=== PATIENT | female | born 1970 | race Caucasian/White ===

== ENCOUNTER 2017-05-28 20:44 | Inpatient (IN) | payer OTHER, BC ==
[2017-05-28 20:45] VITALS: BP 124/69; PULSE 100; PULSE 101; RESP 18; TEMP 98; O2SAT 95; O2SAT 98
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
[2017-05-28] MEDS ORDERED: LEVO150T7 PO (21:41)
[2017-05-28] MEDS ORDERED: EQUE100C PO (21:41)
[2017-05-28] MEDS ORDERED: RISP1 PO (21:41)
[2017-05-28] MEDS ORDERED: BP med PO (21:41)
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
[2017-05-28 22:34] LABS: AUTOMATED NEUTROPHIL # 4.3 TH/MM3 (1.8-7.7); BASOPHIL # 0.1 TH/MM3 (0-0.2); BASOPHIL % 1.2 % (0.0-2.0); EOSINOPHIL # 0.4 TH/MM3 (0-0.4); EOSINOPHIL % 5.1 % (0.0-4.0); HEMATOCRIT 39.3 % (35.0-46.0); HEMOGLOBIN 13.4 GM/DL (11.6-15.3); LYMPH % 30.5 % (9.0-44.0); LYMPHOCYTE # 2.3 TH/MM3 (1.0-4.8); MEAN CELL VOLUME 96.5 FL (80.0-100.0); MEAN CORPUSCULAR HEMOGLOBIN 32.8 PG (27.0-34.0); MEAN PLATELET VOLUME 7.8 FL (7.0-11.0); MONO % 6.2 % (0.0-8.0); MONOCYTE # 0.5 TH/MM3 (0-0.9); PLATELET COUNT 224 TH/MM3 (150-450); RED BLOOD COUNT 4.08 MIL/MM3 (4.00-5.30); RED CELL DISTRIBUTION WIDTH 12.5 % (11.6-17.2); WHITE BLOOD COUNT 7.5 TH/MM3 (4.0-11.0)
[2017-05-28 22:46] LABS: PROTHROMBIN TIME - PATIENT 9.9 SEC (9.8-11.6)
[2017-05-28 22:48] LABS: BICARBONATE 28.1 MEQ/L (21.0-32.0); BLOOD UREA NITROGEN 26 MG/DL (7-18); CALCIUM 8.4 MG/DL (8.5-10.1); CHLORIDE 105 MEQ/L (98-107); CREATININE 0.96 MG/DL (0.50-1.00); GLOMERULAR FILTRATION RATE 62 ML/MIN (>89); GLUCOSE,RANDOM 81 MG/DL (74-106); SODIUM (NA) 137 MEQ/L (136-145)
[2017-05-28] MEDS ORDERED: IOHEXOL 350 MG/ML 10 ML VIAL (for RAD DIAG) IVCONTRAST ONE (23:44)
[2017-05-28] MEDS ORDERED: CLON.5 PO (23:47)
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
[2017-05-29] VITALS: BP 101/62; PULSE 107; RESP 16; TEMP 96.1; O2SAT 92
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
[2017-05-29 00:14] VITALS: BP 112/68; PULSE 103; RESP 16; O2SAT 97
[2017-05-29] MEDS ORDERED: CHLORHEXIDINE GLUCONATE 2 % 1 PACK (2 CLOTHS) TOP PRN (00:45)
[2017-05-29] MEDS ORDERED: HYDROmorphone HCL PF 1 MG/ML VIAL IVP PRN (00:45)
[2017-05-29] MEDS ORDERED: oxyCODONE/ACETAMINOPHEN 5 MG/325 MG TAB PO ONE (00:45)
[2017-05-29] MEDS ORDERED: MISCELLANEOUS NURSING INFORMATION XX SCH (00:45)
[2017-05-29] MEDS: LACTATED RINGER'S 1000 ML INJ 1,000 ML IV SCH ×2 (00:59→09:06)
[2017-05-29 04:00] VITALS: BP 110/72; PULSE 108; RESP 16; TEMP 96.1; O2SAT 95
[2017-05-29] MEDS ORDERED: CHLORHEXIDINE GLUCONATE 2 % 1 PACK (2 CLOTHS) TOP SCH (04:00)
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
[2017-05-29 08:00] VITALS: BP 116/68; PULSE 90; RESP 18; TEMP 98.1; O2SAT 92
[2017-05-29] MEDS ORDERED: DOCUSATE SODIUM 100 MG CAP PO SCH (09:00)
[2017-05-29] MEDS ORDERED: DOCU1CAP39 PO (11:17)
[2017-05-29] MEDS ORDERED: CARBAMAZEPINE 100 MG PO SCH (11:30)
[2017-05-29] MEDS ORDERED: LEVOTHYROXINE SODIUM 150 MCG TAB PO SCH (11:30)
[2017-05-29] MEDS ORDERED: clonazePAM 0.5 MG TAB PO SCH (11:30)
[2017-05-29] MEDS ORDERED: PILL SPLITTER OTHER PRN (11:45)
[2017-05-29] MEDS ORDERED: carBAMazepine 200 MG TAB PO SCH (11:45)
[2017-05-29 12:00] VITALS: BP 114/69; PULSE 101; RESP 20; TEMP 98.8; O2SAT 94
[2017-05-29] MEDS ORDERED: ROBA500T PO (12:05)
[2017-05-29] MEDS ORDERED: PERC5TAB12 PO (12:05)
[2017-05-29] MEDS ORDERED: ACETAMINOPHEN 325 MG TAB PO PRN (12:15)
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
[2017-05-29] MEDS ORDERED: risperiDONE 1 MG TAB PO SCH (21:00)
== END 2017-05-29 16:01 | disposition home or self-care (01) | DRG 605 ==
LOC: NEPC 20:44 → NEDA 05-29 00:45 → N07A 05-29 01:50
PROVIDERS: ADMIT Surgery Trauma Surgery; ATTEND Surgery Trauma Surgery
DX: S20.219A Contusion of unspecified front wall of thorax, initial encounter (principal); S27.329A Contusion of lung, unspecified, initial encounter; I10 Essential (primary) hypertension; E03.9 Hypothyroidism, unspecified; E78.00 Pure hypercholesterolemia, unspecified; Z98.1 Arthrodesis status; Z72.0 Tobacco use; Y92.410 Unspecified street and highway as the place of occurrence of the external cause; V49.49XA Driver injured in collision with other motor vehicles in traffic accident, initial encounter
CPT/HCPCS: 70450; 71045; 71260; 72125; 72170; 74177; 80048; 80307; 85025; 85610; 85730; 86850; 86900; 86901; J7120; Q9967